=== PATIENT | female | born 1970 | race Caucasian/White ===

== ENCOUNTER 2023-10-29 07:37 | Day surgery (SDC) | payer BC ==
[~2023-10-29] VITALS: Ht 167.6 cm; Wt 69.4 kg
[~2023-10-29 07:37] MED LIST: COQ1030 MG PO; ESCITALOPRAM OX10 MG PO; IRBESARTAN150 M1 PO; LEVOTHYROXIN150 MC1 PO; SPIRONOLACTONE50 MG PO
[2023-10-29] MEDS ORDERED: LACTATED RINGER'S 1,000 ML IV ONE (07:40)
[2023-10-29] MEDS ORDERED: STERILE WATER FOR IRRIGATION 1,000 ML BTL IR ONE (09:24)
[2023-10-29 09:45] VITALS: BP 135/88
[2023-10-29] MEDS ORDERED: PROPOFOL 200 MG/20 ML VIAL IV ONE (10:38)
[2023-10-29] MEDS ORDERED: GLYCOPYRROLATE 0.2 MG/ML IV ONE (10:38)
[2023-10-29] MEDS ORDERED: LIDOCAINE HCL 2% 2ML SDV IV ONE (10:38)
== END 2023-10-29 10:10 | disposition home or self-care (01) | DRG 951 ==
LOC: ENDO 07:37
PROVIDERS: ATTEND Surgery
PROC: 0DJD8ZZ Inspection of Lower Intestinal Tract, Via Natural or Artificial Opening Endoscopic (ICD-10-PCS; principal; 2023-10-29)
DX: Z12.11 Encounter for screening for malignant neoplasm of colon (principal); K64.8 Other hemorrhoids; I10 Essential (primary) hypertension; Z88.2 Allergy status to sulfonamides; Z80.0 Family history of malignant neoplasm of digestive organs